=== PATIENT | female | born 1960 | race Two or more races ===

== ENCOUNTER 2023-01-15 14:48 | Emergency (ER) | payer OTHER ==
[~2023-01-15] VITALS: Ht 160 cm; Wt 83.9 kg
[2023-01-15] MEDS ORDERED: COZAAR25 MG PO (15:01)
== END 2023-01-15 20:00 | disposition home or self-care (01) ==
LOC: ER 14:48
DX: K52.9 Noninfective gastroenteritis and colitis, unspecified (principal); I10 Essential (primary) hypertension